=== PATIENT | female | born 1970 | race Caucasian/White ===

== ENCOUNTER 2022-10-03 07:20 | Day surgery (SDC) | payer BC ==
[~2022-10-03] VITALS: Ht 162.6 cm; Wt 75.0 kg
--- NOTE | ~2022-10-03 | OR ---
[facility] [address], [place] [address] Draft DATE OF OPERATION: 10/03/2022 SURGEON: Radha Wood MD PREOPERATIVE DIAGNOSIS: Colon screening. POSTOPERATIVE DIAGNOSIS: 1 cm low rectal polyp (excised). PROCEDURE: Total colonoscopy to cecum with cold morcellation, excision of low rectal polyp and application of hemoclips. ANESTHESIA: Intravenous sedation; fentanyl 150 mcg and Versed 7 mg. INDICATION: This 52-year-old white woman is a patient of LATONIA Lala. She was referred for screening colonoscopy. She has no family history of colon cancer and no symptoms of bleeding, diarrhea or constipation. She is admitted at this time to undergo colonoscopy. She understands the risk of bleeding, infection, and perforation. FINDINGS: The prep was excellent. Complete colonoscopy was undertaken to the cecum. The colon was entirely normal except in the low rectum where on retroflexed view, a 1 cm adenomatous polyp was noted. This was excised with cold morcellation technique. Hemoclip was applied for hemostasis. DESCRIPTION OF PROCEDURE: The patient was brought to the endoscopy suite and placed in the lateral decubitus position, given intravenous sedation to the point of slurred speech and nystagmus. Digital rectal examination was normal. An Olympus video colonoscope was passed in the rectum and manipulated throughout the colon ultimately intubating the cecum itself. Additional sedation was given as needed. The scope was withdrawn and examination throughout showed no sign of abnormality; she had an extremely good bowel prep. Retroflexed view in the rectum demonstrated an adenomatous polyp just above the dentate line. This was excised with cold morcellation technique. As there was persistent oozing from the area, hemoclip was applied. The PATIENT NAME: ALEYDA MALDONADO OPERATIVE REPORT DATE OF : 74 REPORT #: [id number] PHYSICIAN: RADHA WOOD MD PCP: IMELDA HERRERA PA-C REPORT IS CONFIDENTIAL AND NOT TO BE RELEASED WITHOUT AUTHORIZATION [facility] [address], [place] [address] Draft scope was removed and the patient was taken to the recovery room in good condition. CONCLUDING DIAGNOSIS: Polyp x1, low rectum. PLAN: Recommend repeat colonoscopy in three years, sooner if symptoms should occur. She is advised that she will possibly have a small amount of rectal bleeding postoperatively. This would be expected and should paula quickly. MD ANGEL Rodgers/BART /[id number] cc: PA. Spike Copies: ~ PATIENT NAME: ALEYDA MALDONADO OPERATIVE REPORT DATE OF : 74 REPORT #: [id number] PHYSICIAN: RADHA WOOD MD PCP: IMELDA HERRERA PA-C REPORT IS CONFIDENTIAL AND NOT TO BE RELEASED WITHOUT AUTHORIZATION
[~2022-10-03 07:20] MED LIST: AVIANE1 EACH PO; ESZOPICLONE3 MG PO; TRAZODONE HCL100 MG PO
--- NOTE | 2022-10-03 09:27 | NUR ---
10/03/22 0927 Mary Da Silva 0917 PT ARRIVED IN PACU SLEEPY WITH NO C/O'S. ABD SOFT AND PASSING FLATUS. 924 RESTING. REU.
--- NOTE | 2022-10-03 10:13 | NUR ---
PT IS ALERT,ORIENTED AND HERE FOR HER FIRST SCOPE. HER WILL RETURN FOR DC. ALL QUESTIONS ASKED ANSWERED. GAVE BLESSING AND WILL FOLLOW
--- NOTE | 2022-10-04 12:07 | PATH ---
[facility] [address] [facility] [place] [address] Signed SPECIMEN(S): A RECTAL POLYPS SPECIMEN SOURCE: A. RECTAL POLYPS CLINICAL HISTORY: Screening. Polyps. FINAL PATHOLOGIC DIAGNOSIS: Rectal polyps: - Tubular adenoma (two fragments). JVR:[facility]:C2NR MICROSCOPIC EXAMINATION: Histologic sections of all submitted blocks are examined by light microscopy. These findings, together with the gross examination, support the pathologic diagnosis. GROSS DESCRIPTION: The specimen, labeled and designated "Celi rectal polyps," is received in formalin and consists of two gipson soft tissue fragments, ranging from 0.2-0.4 cm. Entirely submitted in (A1). JS (under the direct supervision of a pathologist) The Gross Description was prepared using a voice recognition system. The report was reviewed for accuracy; however, sound-alike word errors, addition and/or deletions may occur. If there is any question about this report, please contact Client Services. PERFORMING LABORATORY: The technical component was performed by [facility], [address] [place] [id number] (CLIA# [id number]). Professional interpretation was performed by [facility], [address] [place] [id number] (CLIA#: [id number]). Diagnostician: Otto Casanova MD Pathologist Electronically Signed 10/04/2022 PATIENT NAME: ALEYDA MALDONADO PATHOLOGY DATE OF : 74 REPORT #: [id number] PHYSICIAN: MASTER RAMIREZ PCP: IMELDA HERRERA PA-C REPORT IS CONFIDENTIAL AND NOT TO BE RELEASED WITHOUT AUTHORIZATION
== END 2022-10-03 09:50 | disposition home or self-care (01) ==
LOC: DS 07:20 → OPS 07:20 → DS 08:30 → OPS 08:30
PROVIDERS: ATTEND Surgery
PROC: 0W3P8ZZ Control Bleeding in Gastrointestinal Tract, Via Natural or Artificial Opening Endoscopic (ICD-10-PCS; 2022-10-03)
PROC: 0DBP8ZX Excision of Rectum, Via Natural or Artificial Opening Endoscopic, Diagnostic (ICD-10-PCS; principal; 2022-10-03 08:30)
DX: R19.4 Change in bowel habit (principal); D12.8 Benign neoplasm of rectum; N99.85 Post endometrial ablation syndrome; Z98.84 Bariatric surgery status; Z86.59 Personal history of other mental and behavioral disorders; Z90.49 Acquired absence of other specified parts of digestive tract
CPT/HCPCS: 84703; J2250; J3010; J7121

== ENCOUNTER 2025-06-06 12:43 | Emergency (ER) | payer BC ==
[~2025-06-06] VITALS: Ht 162.6 cm; Wt 62.3 kg
== END 2025-06-06 15:12 | disposition home or self-care (01) ==
LOC: ED 12:43
DX: M79.662 Pain in left lower leg (principal); Z79.899 Other long term (current) drug therapy
CPT/HCPCS: 93971; 99283-25